=== PATIENT | female | born 1985 | race Two or more races ===

== ENCOUNTER 2020-08-07 20:59 | Emergency (ER) | payer OTHER ==
[~2020-08-07] VITALS: Ht 154.9 cm; Wt 85.3 kg
--- NOTE | 2020-08-07 21:15 | NUR ---
Patient presents to ER c/o abd cramping and vag bleeding since yesterday. Patient states she is 7 weeks and it feels like she is having a normal period. Patient is in NAD. Respirations even and unlabored.
[2020-08-07 22:00] LABS: BASOPHILS % (AUTO) 1 % (0-1); EOSINOPHILS % (AUTO) 2 % (1-7); LYMPHOCYTES % (AUTO) 21 % (22-44); MEAN CORPUSCULAR HEMOGLOBIN 30.9 pg (27.0-34.8); MEAN CORPUSCULAR HGB CONC 34.2 g/dL (32.4-35.8); MEAN PLATELET VOLUME 8.6 fL (7.4-10.4); MONOCYTES % (AUTO) 11 % (2-9); NEUTROPHILS % (AUTO) 66 % (42-75); PLATELET COUNT 246 x10^3/uL (130-400); RED BLOOD COUNT 4.56 x10^6/uL (3.82-5.3); RED CELL DISTRIBUTION WIDTH 13.5 % (9.6-15.2)
--- NOTE | 2020-08-07 22:00 | NUR ---
Patient to US.
[2020-08-07 22:02] LABS: ALBUMIN 3.5 g/dL (3.4-5.0); ANION GAP 5 mmol/L (5-15); CALCIUM 8.9 mg/dL (8.5-10.1); CHLORIDE 107 mmol/L (98-107); CREATININE 0.88 mg/dL (0.55-1.02)
[2020-08-07 22:06] LABS: MD NO
[2020-08-07 22:39] LABS: MICROSCOPIC INDICATED
[2020-08-07] MEDS ORDERED: ACETAMINOPHEN 500 MG TABLET PO ONE (23:30)
[2020-08-07] MEDS ORDERED: PLEASE ENTER ALLERGIES MC SCH (23:30)
[2020-08-07] MEDS ORDERED: ACETAMINOPHEN 500 MG TABLET ONE (23:53)
[2020-08-07 23:56] VITALS: BP 141/78
== END 2020-08-08 00:05 | disposition home or self-care (01) ==
LOC: ED 21:21
DX: O20.0 Threatened abortion (principal); R10.2 Pelvic and perineal pain; Z3A.08 8 weeks gestation of pregnancy
CPT/HCPCS: 36415; 76801; 80048; 81001; 82040; 84702; 85025; 86901; 87086; 99284

== ENCOUNTER 2020-08-09 19:05 | Emergency (ER) | payer OTHER ==
[~2020-08-09] VITALS: Ht 152.4 cm; Wt 83.0 kg
[2020-08-09 19:08] VITALS: BP 143/84
== END 2020-08-09 20:20 | disposition home or self-care (01) ==
LOC: ED 20:08
DX: O03.9 Complete or unspecified spontaneous abortion without complication (principal)
CPT/HCPCS: 36415; 84702; 99283

== ENCOUNTER 2021-03-29 15:35 | Emergency (ER) | payer OTHER ==
[~2021-03-29] VITALS: Ht 152.4 cm; Wt 85.0 kg
[2021-03-29 16:26] LABS: ALBUMIN 3.4 g/dL (3.4-5.0); ANION GAP 6 mmol/L (5-15); CALCIUM 8.6 mg/dL (8.5-10.1); CHLORIDE 107 mmol/L (98-107)
[2021-03-29 16:29] LABS: BASOPHILS % (AUTO) 0 % (0-1); EOSINOPHILS % (AUTO) 2 % (1-7); LYMPHOCYTES % (AUTO) 8 % (22-44); MEAN CORPUSCULAR HEMOGLOBIN 30.1 pg (27.0-34.8); MEAN CORPUSCULAR HGB CONC 33.5 g/dL (32.4-35.8); MEAN PLATELET VOLUME 8.5 fL (7.4-10.4); MONOCYTES % (AUTO) 3 % (2-9); NEUTROPHILS % (AUTO) 88 % (42-75); PLATELET COUNT 299 x10^3/uL (130-400); RED BLOOD COUNT 4.74 x10^6/uL (3.82-5.3); RED CELL DISTRIBUTION WIDTH 13.9 % (9.6-15.2)
[2021-03-29 16:30] LABS: ALANINE AMINOTRANSFERASE 44 U/L (12-78); ALKALINE PHOSPHATASE 99 U/L (45-117); BILIRUBIN,TOTAL 0.5 mg/dL (0.2-1.0); CREATININE 0.61 mg/dL (0.55-1.02); TOTAL PROTEIN 8.3 g/dL (6.4-8.2)
--- NOTE | 2021-03-29 17:02 | NUR ---
PT TO ROOM FROM [facility], PT CONNECTED TO MONITORS. AT . PT C/O LEFT LOWER LEG INFECTION. PT WAS HERE MONDAY, WAS PLACED ON ANTIBX, STATES SHE IS STILL TAKING THEM. PT THINKS INFECTION IS CONTINUING TO SPREAD WITH INCREASING PAIN SINCE BEING SEEN.
[2021-03-29 17:04] VITALS: BP 147/97
--- NOTE | 2021-03-29 17:17 | NUR ---
ERP AT BS
--- NOTE | 2021-03-29 17:49 | NUR ---
Patient given discharge instructions and rx, they have confirmed that they understand the instructions. Patient ambulatory with steady gait.
== END 2021-03-29 17:50 | disposition home or self-care (01) ==
LOC: ED 17:44
DX: L03.116 Cellulitis of left lower limb (principal)
CPT/HCPCS: 36415; 80053; 85025; 99283